=== PATIENT | male | born 1950 | race Caucasian/White ===

== ENCOUNTER 2018-02-07 11:25 | Emergency (ER) | payer MEDICARE ==
[2018-02-07 11:51] VITALS: BP 168/74
--- NOTE | 2018-02-07 11:57 | UC ---
General HPI - HPI Summary HPI Summary: 67 yo male presents with right ankle pain for the last 4 hours. He tells me that he has a hx of gout in this ankle/foot/toes, but has been on long-term maintenance therapy and has not needed his indomethacin for almost a year - thus the rx is . He did not injure his ankle/foot and believes this is a gout flare as he has been eating foods he "knows he shouldn't" recently. He is requesting a refill of his indocin. Denies numbness, tingling, injury, fever, or chills. - History of Current Complaint Chief Complaint: UCLowerExtremity Stated Complaint: SCRIPT REFILL Time Seen by Provider: 02/07/18 11:56 Hx Obtained From: Patient Onset/Duration: Sudden Onset Onset Severity: Moderate Current Severity: Moderate Pain Intensity: 7 - Allergy/Home Medications Allergies/Adverse Reactions: Allergies Allergy/AdvReac Type Severity Reaction Status Date / Time No Known Allergies Allergy Verified 01/04/14 16:23 Home Medications: Home Medications Indomethacin CAP* [Indocin CAP*] 02/07/18 [History] PMH/Surg Hx/FS Hx/Imm Hx - Additional Past Medical History Additional PMH: Gout Endocrine History: Hypothyroidism Respiratory History: Asthma - Surgical History Surgical History: Yes Surgery Procedure, Year, and Place: GALL BLADDER 2012, KNEE SURGERY - Family History Known Family History: Negative: Diabetes - Social History Occupation: Unemployed Lives: With Family Alcohol Use: Occasionally Substance Use Type: None Smoking Status (MU): Light Every Day Tobacco Smoker Type: Smokeless Tobacco - Immunization History Most Recent Tetanus Shot: UNSURE Review of Systems Constitutional: Negative Skin: Negative Respiratory: Negative Cardiovascular: Negative Neurovascular: Negative Musculoskeletal: Other: - Right ankle pain Neurological: Negative Psychological: Negative All Other Systems Reviewed And Are Negative: Yes Physical Exam - Summary Physical Exam Summary: GENERAL: NAD. WDWN. No pain distress. SKIN: No rashes, sores, lesions, or open wounds. NECK: Supple. Nontender. No lymphadenopathy. CHEST: No accessory muscle use. Breathing comfortably and in no distress. CV: Pulses intact PT and DP. Brisk cap refill. MSK: RIGHT ankle: FROM. Moderate TTP medial malleolus. No erythema. Strength 5/ 5. No edema or obvious bony deformities. Negative talar tilt. No increased laxity. NEURO: Alert. Sensations intact and symmetric B/L LEs PSYCH: Age appropriate behavior. Triage Information Reviewed: Yes Vital Signs: Initial Vital Signs Temp 97.6 F 02/07/18 11:42 Pulse 60 02/07/18 11:42 Resp 16 02/07/18 11:42 BP 168/74 02/07/18 11:42 Pulse Ox 97 02/07/18 11:42 Vital Signs Reviewed: Yes Course/Dx - Course Course Of Treatment: Refill of indomethacin - Differential Dx - Multi-Symptom Provider Diagnoses: Gout right ankle Discharge - Sign-Out/Discharge Documenting (check all that apply): Patient Departure - Discharge Plan Condition: Stable Disposition: HOME Prescriptions: Indomethacin CAP* [Indocin CAP*] 50 mg PO QID PRN #60 cap PRN Reason: pain Patient Education Materials: Low Purine Diet (ED), Gout (ED) Referrals: Tima Winn MD [Primary Care Provider] - Additional Instructions: If you develop a fever, shortness of breath, chest pain, new or worsening symptoms - please call your PCP or go to the ED. Your blood pressure was high at todays visit. Please see your primary provider within 4 weeks for recheck and re-evaluation. - Billing Disposition and Condition Condition: STABLE Disposition: Home
== END 2018-02-07 12:10 | disposition home or self-care (01) ==
LOC: UCEAST 11:25
DX: M10.071 Idiopathic gout, right ankle and foot (principal); Z76.0 Encounter for issue of repeat prescription; F17.290 Nicotine dependence, other tobacco product, uncomplicated
CPT/HCPCS: 99212; G0463

== ENCOUNTER 2019-07-27 09:30 | Observation (INO) | payer MEDICARE ==
[~2019-07-27 09:30] MED LIST: Heparin VIAL(*) 5000 UNITS/ML VIAL (FIVE THOUSAND) SUBCUT SCH
--- OUTSIDE RECORDS SUMMARY | 2019-07-27 12:10 | XMS REPORT | Summary of Care ---
:1950 Author Organization [facility] Address [address] [address] Care Team Providers Name Role Phone Tima Winn Primary Care Provider Reason for Referral Medication Prior Authorization (Routine) Status Reason Specialty Diagnoses / Procedures Referred By Referred To Contact Contact Closed Diagnoses Spondylosis of lumbar region without myelopathy or radiculopathy Primary osteoarthritis of right hip Primary osteoarthritis of right knee Ector Jacobs PA [address] [place] [address] Reason for Visit Reason Comments Low Back Pain Encounter Details Date Type Department Care Team Description 06/24/2019 Office Visit [place] Ector Jacobs Spondylosis of lumbar region without myelopathy or radiculopathy (Primary Dx); JORDANA Huff Primary osteoarthritis of right hip; [address] [place] [address] [phone] Allergies Active Allergy Reactions Severity Noted Date Comments Cat Respiratory Reaction 03/16/2009 Perfume GI Reaction 03/16/2009 documented as of this encounter (statuses as of 06/24/2019) Medications Medication Sig Dispensed Refills Start Date End Date Status Spacer/Aero-Holding 1 Kit by Does not 1 Kit 0 06/12/2010 Active Chambers Does not apply route apply Kit DIRECTED. fexofenadine (JESUS) Take 180 mg by 0 Active 180 MG Oral Tab mouth DAILY. albuterol HFA Take 2 Puffs by 1 Inhaler 5 09/11/2017 Active (VENTOLIN) 108 (90 inhalation EVERY Base) MCG/ACT SIX HOURS Inhalation Aero Soln NEEDED (short of breath). levothyroxine Take 1 Tab by 90 Tab 5 01/11/2019 01/11/2020 Active (SYNTHROID) 200 MCG mouth BEFORE Oral Tab BREAKFAST. indomethacin (INDOCIN) Take 1 Cap by 60 Cap 5 02/10/2019 Active 50 MG Oral mouth FOUR TIMES CapIndications: Acute DAILY NEEDED gouty arthropathy (gout). with food allopurinol (ZYLOPRIM) TAKE 1 TABLET BY 90 Tab 3 03/08/2019 Active 300 MG Oral MOUTH ONCE DAILY TabIndications: Idiopathic chronic gout without tophus, unspecified site ibuprofen (MOTRIN) 600 Take 1 Tab by 60 Tab 0 06/24/2019 Active MG Oral mouth EVERY EIGHT TabIndications: HOURS NEEDED Spondylosis of lumbar (Take every 8 region without hours as needed myelopathy or for back and knee radiculopathy, Primary pain.). osteoarthritis of right hip, Primary osteoarthritis of right knee cyclobenzaprine Take 1 Tab by 42 Tab 0 06/24/2019 Active (FLEXERIL) 10 MG Oral mouth THREE TIMES TabIndications: DAILY NEEDED Spondylosis of lumbar (Take up to three region without times per day as myelopathy or needed for back radiculopathy, Primary pain.). 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 05/2011 Started cpap 07/10. Auto titrate with mask. ENVIRONMENTAL ALLERGIES 06/12/2010 Ulcerative colitis, unspecified 06/12/2010 Colon polyp 02/05/2010 Overview: S/p colonoscopy and polypectomy [facility] 1999 Polypectomy 2007 Normal colonoscopy 2009 Other specified hypothyroidism 02/13/2009 Extreme obesity 02/13/2009 Overview: BMI 45 02/04. Weight loss 2011-05 371 pounds down to 290 pounds fall 2011 This patient's BMI has been calculated and is above average, and BMI management plan is completed. General patient education discussion including: obesity-related excess mortality, weight loss link to reduction of risk factors for cardiac and other diseases, importance of long- term maintenance treatment in weight loss documented as of this encounter (statuses as of 06/24/2019) Resolved Problems Problem Noted Date Resolved Date Acute pain of right knee 10/07/2018 11/09/2018 Low back pain 12/10/2015 11/09/2018 Ankle pain 04/18/2014 11/09/2018 Obesity, unspecified 12/09/2011 05/04/2012 Ulcerative colitis, unspecified 06/12/2010 10/28/2013 Indigestion 06/12/2010 12/25/2015 Gout, unspecified 03/20/2009 09/02/2017 Overview: Intermittent big toe swelling Last attack summer 2009 ACL tear 02/13/2009 11/09/2018 Overview: Left knee injury 2006-declined surgery. W/c injury: employer [employer] documented as of this encounter (statuses as of 06/24/2019) Immunizations Name Administration Dates Next Due Influenza (IM) Preservative Free 04/22/2018 PNEUMOCOCCAL POLYSACCHARIDE VACCINE 11/09/2018 Pneumococcal Conjugate(13 Valent) 09/02/2017 TDAP Vaccine 12/27/2002 documented as of this encounter Social History Tobacco Use Types Packs/Day Years Used Date Former Smoker Cigars 0.5 Quit: 11/27/2008 Smokeless Tobacco: Never Used Comments: 1 cigar a week-does not inhale Alcohol Use Drinks/Week oz/Week Comments Yes Sex Assigned at Date Recorded Not on file Job Start Date Occupation Industry Not on file Not on file Not on file Travel History Travel Start Travel End No recent travel history available. documented as of this encounter Last Filed Vital Signs Vital Sign Reading Time Taken Comments Blood Pressure 142/92 06/24/2019 12:29 PM EST Pulse 72 06/24/2019 12:29 PM EST Temperature 36.2 06/24/2019 12:29 PM EST C (97.2 F) Respiratory Rate 16 06/24/2019 12:29 PM EST Oxygen Saturation 96% 06/24/2019 12:29 PM EST Inhaled Oxygen Concentration - - Weight 145.6 kg (321 lb) 06/24/2019 12:29 PM EST Height 180.3 cm (5' 11") 06/24/2019 12:29 PM EST Body Mass Index 44.77 06/24/2019 12:29 PM EST documented in this encounter Progress Notes Ector Jacobs PA - 06/24/2019 2:00 PM EST PATIENT: Cem Garcia : 1950 DATE OF SERVICE: 06/24/2019 CHIEF COMPLAINT: Chief Complaint Patient presents with Low Back Pain Subjective HISTORY OF PRESENT ILLNESS: Cem Garcia is a 69-y.o. male. Cem presents today to see if he can receive any medication to alleviate his lower back pain, right hip pain, right knee pain and right leg sciatica. He is currently under the care of [facility], where he receives routine corticosteroid injections. However, over the last 4 days he has experienced intolerable pain that he would like addressed. He states the pain is about an 8/10 recently and is keeping him from walking short distances and he is having great difficulty moving positions between sitting and standing. To alleviate the pain he isusing a back brace and is taking Tylenol 2 grams daily without much relief. He used to be a regular ibuprofen user but was advised to stop taking it several years ago when he was diagnosed with ulcerative colitis. He has not tried ibuprofen or other medications for the pain. He currently denies saddle anesthesia, sciatica in the left leg, changes in bowel or urinary habits,or incontinence. Past Medical History: Diagnosis Date ACL tear ENVIRONMENTAL ALLERGIES 06/12/2010 Indigestion 06/12/2010 Obesity Ulcerative colitis, unspecified 06/12/2010 Family History Problem Relation Age of Onset Cancer Mother breast Cancer Father lung (smoker) Current Outpatient Medications Medication Sig albuterol HFA (VENTOLIN) 108 (90 Base) MCG/ACT Inhalation Aero Soln Take 2 Puffs by inhalation EVERY SIX HOURS NEEDED (short of breath). allopurinol (ZYLOPRIM) 300 MG Oral Tab TAKE 1 TABLET BY MOUTH ONCE DAILY cyclobenzaprine (FLEXERIL) 10 MG Oral Tab Take 1 Tab by mouth THREE TIMES DAILY NEEDED (Take up to three times per day as needed for back pain.). fexofenadine (JESUS) 180 MG Oral Tab Take 180 mg by mouth DAILY. ibuprofen (MOTRIN) 600 MG Oral Tab Take 1 Tab by mouth EVERY EIGHT HOURS NEEDED (Take every 8 hours as needed for back and knee pain.). indomethacin (INDOCIN) 50 MG Oral Cap Take 1 Cap by mouth FOUR TIMES DAILY NEEDED (gout). with food levothyroxine (SYNTHROID) 200 MCG Oral Tab Take 1 Tab by mouth BEFORE BREAKFAST. Spacer/Aero-Holding Chambers Does not apply Kit 1 Kit by Does not apply route DIRECTED. No current facility-administered medications for this visit. Allergies Allergen Reactions Cat Respiratory Reaction Perfume GI Reaction Social History Socioeconomic History Marital status: Single Spouse name: Not on file Number of children: Not on file Years of education: Not on file Highest education level: Not on file Occupational History Not on file Social Needs Financial resource strain: Not on file Food insecurity Worry: Not on file Inability: Not on file Transportation needs Medical: Not on file Non-medical: Not on file Tobacco Use Smoking status: Former Smoker Years: 0.50 Types: Cigars Last attempt to quit: 11/27/2008 Years since quittin.5 Smokeless tobacco: Never Used Tobacco comment: 1 cigar a week-does not inhale Substance and Sexual Activity Alcohol use: Yes Drug use: No Sexual activity: Not Currently Lifestyle Physical activity Days per week: Not on file Minutes per session: Not on file Stress: Not on file Relationships Social connections Talks on phone: Not on file Gets together: Not on file Attends episcopal service: Not on file Active member of club or organization: Not on file Attends meetings of clubs or organizations: Not on file Relationship status: Not on file Intimate partner violence Fear of current or ex partner: Not on file Emotionally abused: Not on file Physically abused: Not on file Forced sexual activity: Not on file Other Topics Concern Back Care Not Asked Bike Helmet Not Asked Blood Transfusions Not Asked Caffeine Concern Not Asked Exercise No Comment: walks several miles daily Hobby Hazards Not Asked International Travel Not Asked Service Not Asked Occupational Exposure Not Asked Seat Belt Yes Self-Exams Not Asked Sleep Concern Yes Comment: poor quality sleep-3-4 hours per night Special Diet Yes Comment: portion control diet Stress Concern Yes Comment: job is stressful-works 70 hours per week. 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 Eyes: Negative for blurred vision and double vision. Respiratory: Negative for cough and shortness of breath. Cardiovascular: Negative for chest pain, palpitations and leg swelling. Gastrointestinal: Negative for blood in stool, diarrhea, heartburn, nausea and vomiting. Genitourinary: Negative for frequency. Musculoskeletal: Positive for back pain and joint pain. Negative for myalgias and neck pain. Skin: Negative for itching and rash. Neurological: Negative for dizziness, tingling, tremors, sensory change, speech change, seizures, weakness and headaches. Objective PHYSICAL EXAM: VITALS: BP (!) 142/92 (BP Location: Left arm, Patient Position: Sitting) | Pulse 72 | Temp 97.2 F (36.2 C) | Resp 16 | Ht 5' 11" (1.803 m) | Wt 321 lb (145.6 kg) | SpO2 96% | BMI 44.77 kg/m Body mass index is 44.77 kg/m. Physical Exam Vitals signs and nursing note reviewed. Constitutional: General: He is not in acute distress. HENT: Head: Normocephalic and atraumatic. Eyes: Pupils: Pupils are equal, round, and reactive to light. Musculoskeletal: General: No swelling, tenderness or deformity. Right lower leg: No edema. Left lower leg: No edema. Comments: Patient complains of pain in all ranges of motion of the hip and knee. Patient experiences obvious pain when sitting and standing. He is not able to bend forward or backward. Skin: General: Skin is warm and dry. Neurological: General: No focal deficit present. Mental Status: He is alert and oriented to person, place, and time. Sensory: No sensory deficit. Coordination: Coordination normal. ASSESSMENT / IMPRESSION: ICD-9-CM ICD-10-CM 1. Spondylosis of lumbar region without myelopathy or radiculopathy 721.3 M47.816 ibuprofen (MOTRIN)600 MG Oral Tab cyclobenzaprine (FLEXERIL) 10 MG Oral Tab 2. Primary osteoarthritis of right hip 715.15 M16.11 ibuprofen (MOTRIN) 600 MG Oral Tab cyclobenzaprine (FLEXERIL) 10 MG Oral Tab 3. Primary osteoarthritis of right knee 715.16 M17.11 ibuprofen (MOTRIN) 600 MG Oral Tab cyclobenzaprine (FLEXERIL) 10 MG Oral Tab Based on the patient's nature, I advised that he may take ibuprofen 600mg every 8 hours as needed for the pain, but he should only take it when absolutely necessary based on his history of ulcerative colitis. Because he only experiences pain when in motion, he states it that he will take it only when he goes to work. Please rotate the ibuprofen with Tylenol. I also prescribed him cyclobenzaprine to reduce musculoskeletal spasming that he has been experiencing. He may take this in combination with his NSAIDs and tylenol. He has been advised of the side effects such as sedation and dizziness , and to avoid operating equipment when on flexeril. Follow up as needed, and continue to see orthopedics. Author: JORDANA Allison 06/24/2019 13:03 documented in this encounter Plan of Treatment Date Type Specialty Care Team Description 07/08/2019 Office Visit Orthopedics Arsh Monsalve MD [address] [address] Health Maintenance Due Date Last Done Comments MEDICARE ANNUAL WELLNESS 1950 VISIT ZOSTER IMMUNIZATION SERIES 2002 (1 of 2) DTaP/Tdap/Td Vaccines (2 - 12/27/2012 12/27/2002 Tdap) AAA SCREENING/SURVEILLANCE 2017 DIABETES SCREENING 12/19/2019 12/18/2018, 11/09/2018, 09/02/2017, Additional history exists DEPRESSION SCREENING 01/12/2020 01/11/2019 FALL RISK ASSESSMENT 01/12/2020 01/11/2019, 01/11/2019 LIPID DISORDER SCREENING 11/10/2023 11/09/2018, 09/02/2017, 05/09/2010, Additional history exists Colonoscopy 04/26/2024 04/26/2019, 04/26/2019, 01/18/2015 (Postponed), Additional history exists PNEUMOCOCCAL 65+YRS Completed 11/09/2018, 09/02/2017 HEPATITIS A IMMUNIZATION Aged Out No longer eligible SERIES based on patient's age to complete this topic HPV IMMUNIZATION SERIES Aged Out No longer eligible based on patient's age to complete this topic MENINGOCOCCAL VACCINE IMM Aged Out No longer eligible based on patient's age to complete this topic documented as of this encounter Results Not on filedocumented in this encounter Visit Diagnoses Diagnosis Spondylosis of lumbar region without myelopathy or radiculopathy Lumbosacral spondylosis without myelopathy Primary osteoarthritis of right hip Primary localized osteoarthrosis, pelvic region and thigh Primary osteoarthritis of right knee Primary localized osteoarthrosis, lower leg documented in this encounter Insurance Payer Benefit Plan / Subscriber ID Effective Dates Phone Address Type Group AETNA MEDICARE AETNA MEDICARE xxxxxxxx 2017-Present [employer] ADVANTAGE ADVANTAGE (Work) documented as of this encounter
--- OUTSIDE RECORDS SUMMARY | 2019-07-27 12:10 | XMS REPORT | Summary of Care ---
:1950 Author Organization [facility] Address [address] [facility] [place] [address] Care Team Providers Name Role Phone Tima Winn Primary Care Provider Reason for Visit Reason Comments Follow Up right hip Encounter Details Date Type Department Care Team Description 07/08/2019 Office Visit [facility] - Arsh Monsalve, Primary osteoarthritis Jonathan ROGERS of right hip (Primary [address] [place] [address]) [address] [place] [address] [place] [address] [phone] Allergies Active Allergy Reactions Severity Noted Date Comments Cat Respiratory Reaction 03/16/2009 Perfume GI Reaction 03/16/2009 documented as of this encounter (statuses as of 07/22/2019) Medications Medication Sig Dispensed Refills Start Date [...] as of this encounter (statuses as of 07/22/2019) Active Problems Problem Noted Date Pre-diabetes 02/10/2019 Spondylosis of lumbar region without myelopathy or radiculopathy 11/09/2018 Primary osteoarthritis of right hip 11/09/2018 Primary osteoarthritis of right knee 11/09/2018 Idiopathic chronic gout without tophus 09/02/2017 Mild intermittent asthma 12/25/2015 Ankle pain, right 04/11/2014 YASMEEN (obstructive sleep apnea) 07/01/2011 Overview: Severe by sleep study [facility] 05/2011 Started cpap 07/10. Auto titrate with mask. ENVIRONMENTAL ALLERGIES 06/12/2010 Ulcerative colitis, unspecified 06/12/2010 Colon polyp 02/05/2010 Overview: S/p colonoscopy and polypectomy [facility] 1999 Polypectomy 2007 Normal colonoscopy 2009 Other specified hypothyroidism 02/13/2009 Extreme obesity 02/13/2009 Overview: BMI 45 02/04. Weight loss 2010- 371 pounds down to 290 pounds fall 2011 This patient's BMI has been calculated and is above average, and BMI management plan is completed. General patient education discussion including: obesity-related excess mortality, weight loss link to reduction of risk factors for cardiac and other diseases, importance of long- term maintenance treatment in weight loss documented as of this encounter (statuses as of 07/22/2019) Resolved Problems Problem Noted Date Resolved Date [...] as of this encounter (statuses as of 07/22/2019) Immunizations Name Administration Dates Next Due Influenza [...] Sign Reading Time Taken Comments Blood Pressure - - Pulse - - Temperature - - Respiratory Rate 16 07/08/2019 10:32 AM EST Oxygen Saturation - - Inhaled Oxygen Concentration - - Weight 145.6 kg (321 lb) 07/08/2019 10:32 AM EST Height 180.3 cm (5' 11") 07/08/2019 10:32 AM EST Body Mass Index 44.77 07/08/2019 10:32 AM EST documented in this encounter Progress Notes Arsh Monsalve MD - 07/08/2019 10:30 AM EST [address] [place] [address] PATIENT: Cem Garcia : 1950 DATE OF PROCEDURE: 07/22/2019 SURGEON: kennedy PRE-OP Diagnosis: right Hip and Low Back Pain or Knee pain. POST-OP Diagnosis: right Hip and Low Back Pain or Knee pain. Procedure: Diagnostic Therapeutic Intra-articular right Hip Iinjection. Anesthesia Type: Local EBL: Minimal Complications: None INDICATION FOR PROCEDURE: Cem Garcia is a 69-y.o. male. He has groin pain , low, back pain, and lateral thigh pain. We are doing an intra articular hip injection to sort through the symptoms and determine if the hip is a major pain generator. DESCRIPTION OF PROCEDURE: Following explaining the risks and benefits to the patient, risks include, but are not limited to, infection, blood loss, blood clots, myocardial infarction, damage to neurovascular structures, local reaction to the medication, and failure to relieve symptoms. The patient agrees to proceed. The appropriate site and side were identified and marked. The patient was brought to the Procedure room. The hip was anesthetized with 1% plain lidocaine. The hip was localized under fluoroscopy. An 18-gauge spinal needle was introduced into the hip. Contrast was shot as an arthrogram to verify intraarticular placement, and the hip was injected with 9 cc of 1% plain lidocaine and 80 mg of Depo-Medrol. The patient tolerated the procedure well. Arthrogram:4 sec of flour time used. Hip capsule outlined. Noted underlying arthrosis. POSTOPERATIVE PLAN: Weightbearing as tolerated, mobilize. Tylenol for pain. Keep careful track of symptoms relief. Follow up in 6 weeks Author: Arsh Monaslve MD 07/22/2019 documented in this encounter Plan of Treatment Health Maintenance Due Date Last Done Comments [...] topic documented as of this encounter Results XR DRAIN OR INJ MAJOR JOINT OR BURSA(NO RAD) (07/08/2019 10:51 AM EST) Specimen Narrative Performed At Please see performing physicians notes for results of this exam. [facility] Performing Organization Address City/State[facility] Phone Number [facility] [address] [place] [address] documented in this encounter Visit Diagnoses Diagnosis Primary osteoarthritis of right hip Primary localized osteoarthrosis, pelvic region and thigh documented in this encounter Insurance Payer Benefit Plan / Subscriber ID Effective Dates Phone Address Type Group AETNA MEDICARE AETNA MEDICARE xxxxxxxx 2017-Present [employer] ADVANTAGE ADVANTAGE (Work) documented as of this encounter
--- OUTSIDE RECORDS SUMMARY | 2019-07-27 12:10 | XMS REPORT | Continuity of Care Document ---
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 Medicine Problems Description No Information Available Social History Type Date Description Comments Sex Unknown ETOH Use Occasionally consumes alcohol Tobacco Use Start: Unknown Chew tobacco Exercise Type/Frequency Exercises regularly Allergies, Adverse Reactions, Alerts Description No Known Drug Allergies Medications Active Medications SIG Qnty Indications Ordering Date Provider Albuterol Unknown Nathalie Allergy 1 by mouth every Unknown 180mg day Tablets Allopurinol 1 by mouth every 90tabs Unknown 300mg day Tablets Diphenoxylate-Atropi 1 by mouth every Unknown ne day 2.5-0.025mg Tablets Fluocinonide-E 1 application 30gmtube Unknown 0.05% daily as needed Cream Indomethacin 1 by mouth twice a 60caps Unknown 50mg day Capsules Levothyroxine 1 by mouth every 30tabs Unknown 150mcg day Tablets Loperamide HCL q6hr as needed 100caps Unknown 2mg Capsules Mesalamine Unknown Powder Ondansetron HCL one by mouth every 20tabs Unknown 4mg 8 hours as needed Tablets for nausea Medications Administered in Office Medication SIG Qnty Indications Ordering Provider Date Depomedrol 80MG Cam Reed M.D. 04/25/2014 Injection Immunizations Description No Information Available Vital Signs Date Vital Result Comment 05/09/2014 1:22pm Height 71 inches 5'11" Weight 325.00 lb Pain Level 4 BMI (Body Mass Index) 45.3 kg/m2 04/25/2014 1:31pm Height 71 inches 5'11" Weight 325.00 lb Heart Rate 84 /min BP Systolic 155 mmHg BP Diastolic 102 mmHg BMI (Body Mass Index) 45.3 kg/m2 Results Description No Information Available Procedures Description No Information Available Medical Devices Description No Information Available Encounters Description No Information Available Assessments Description No Information Available Plan of Treatment No Information Available Functional Status Description No Information Available Mental Status Description No Information Available Referrals Description No Information Available
--- OUTSIDE RECORDS SUMMARY | 2019-07-27 12:10 | XMS REPORT | Summary of Care ---
:1950 Author Organization [facility] Address [address] [facility] [place] [address] Care Team Providers Name Role Phone Tima Winn Primary Care Provider Reason for Visit Reason Comments Follow Up right hip Encounter Details Date Type Department Care Team Description 06/17/2019 Office Visit [facility] - Arsh Monsalve, Primary osteoarthritis Jonathan ROGERS of right hip (Primary [address] [place] [address] [place] [address] [phone] Allergies Active Allergy Reactions Severity Noted Date Comments Cat Respiratory Reaction 03/16/2009 Perfume GI Reaction 03/16/2009 documented as of this encounter (statuses as of 06/17/2019) Medications Medication Sig Dispensed Refills Start Date End Date Status Spacer/Aero-Holding 1 Kit by Does not 1 Kit 0 06/12/2010 Active Chambers Does not apply route apply Kit DIRECTED. fexofenadine Take 180 mg by 0 Active (JESUS) 180 MG Oral mouth DAILY. Tab albuterol HFA Take 2 Puffs by 1 Inhaler 5 09/11/2017 Active (VENTOLIN) 108 (90 inhalation EVERY Base) MCG/ACT SIX HOURS Inhalation Aero Soln NEEDED (short of breath). levothyroxine Take 1 Tab by 90 Tab 5 01/11/2019 01/11/2020 Active (SYNTHROID) 200 MCG mouth BEFORE Oral Tab BREAKFAST. indomethacin Take 1 Cap by 60 Cap 5 02/10/2019 Active (INDOCIN) 50 MG Oral mouth FOUR TIMES CapIndications: Acute DAILY NEEDED gouty arthropathy (gout). with food allopurinol TAKE 1 TABLET BY 90 Tab 3 03/08/2019 Active (ZYLOPRIM) 300 MG MOUTH ONCE DAILY Oral TabIndications: Idiopathic chronic gout without tophus, unspecified site documented as of this encounter (statuses as of 06/17/2019) Active Problems Problem Noted Date Pre-diabetes 02/10/2019 Spondylosis of lumbar region without myelopathy or radiculopathy 11/09/2018 Primary osteoarthritis of right hip 11/09/2018 Primary osteoarthritis of right knee 11/09/2018 Idiopathic chronic gout without tophus 09/02/2017 Mild intermittent asthma 12/25/2015 Ankle pain, right 04/11/2014 YASMEEN (obstructive sleep apnea) 07/01/2011 Overview: Severe by sleep study [facility] 05/2011 Started cpap 07/10. Auto titrate with mask. ENVIRONMENTAL ALLERGIES 06/12/2010 Ulcerative colitis, unspecified 06/12/2010 Colon polyp 02/05/2010 Overview: S/p colonoscopy and polypectomy [facility] 1999 Polypectomy 2007 Normal colonoscopy [...] as of this encounter (statuses as of 06/17/2019) Resolved Problems Problem Noted Date Resolved Date Acute pain of right knee 10/07/2018 11/09/2018 Low back pain 12/10/2015 11/09/2018 Ankle pain 04/18/2014 11/09/2018 Obesity, unspecified 12/09/2011 05/04/2012 Ulcerative colitis, unspecified 06/12/2010 10/28/2013 Indigestion 06/12/2010 12/25/2015 Gout, unspecified 03/20/2009 09/02/2017 Overview: Intermittent big toe swelling Last attack summer 2009 ACL tear 02/13/2009 11/09/2018 Overview: Left knee injury 2006-declined surgery. W/c injury: employer [facility] documented as of this encounter (statuses as of 06/17/2019) Immunizations Name Administration Dates Next Due Influenza [...] - - Temperature - - Respiratory Rate 20 06/17/2019 11:33 AM EST Oxygen Saturation - - Inhaled Oxygen Concentration - - Weight 142.4 kg (314 lb) 06/17/2019 11:33 AM EST Height 180.3 cm (5' 11") 06/17/2019 11:33 AM EST Body Mass Index 43.79 06/17/2019 11:33 AM EST documented in this encounter Progress Notes Arsh Monsalve MD - 06/17/2019 12:00 PM EST PATIENT: Cem Garcia : 1950 DATE OF SERVICE: 06/17/2019 SUBJECTIVE: Cem Garcia is a 69-y.o. male. Here for follow up of right hip, injection lasted 6 weeks. He isnow having a lot of pain. He is not sleeping. He is not able to do the things he likes to do . OBJECTIVE: Resp 20 | Ht 5' 11" (1.803 m) | Wt 314 lb (142.4 kg) | BMI 43.79 kg/m Pain with range of motion. 0-90, ir-15, er-30, abd-35, add-15 ASSESSMENT: ICD-9-CM ICD-10-CM 1. Primary osteoarthritis of right hip 715.15 M16.11 PLAN: He is slated to have bariatric surgery jul 27 We will discuss surgery after this Author: Arsh Monsalve MD 06/17/2019 11:44 Portions of this note were made with voice recognition software documented in this encounter Plan of Treatment [...] filedocumented in this encounter Visit Diagnoses Diagnosis Primary osteoarthritis of right hip Primary localized osteoarthrosis, pelvic region and thigh documented in this encounter Insurance Payer Benefit Plan / Subscriber ID Effective Dates Phone Address Type Group AETNA MEDICARE AETNA MEDICARE xxxxxxxx 2017-Present [employer] ADVANTAGE (Home) [phone] [place] [address] (Work) documented as of this encounter
--- OUTSIDE RECORDS SUMMARY | 2019-07-27 12:10 | XMS REPORT | Continuity of Care Document ---
:1950 External Reference #:[id number] Author Name Bryn Chatman DO [facility] (transmitted by agent of provider Corazon Monroe) Address [address] 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 Pt "smoked" cigar in the past. ETOH Use Occasionally consumes alcohol Tobacco Use Start: Unknown Chew tobacco Recreational Drug Use Denies Drug Use Tobacco Use Start: Unknown End: Patient is a former Unknown smoker Smoking Status Reviewed: 06/15/19 Patient is a former smoker Exercise Type/Frequency Exercises regularly Allergies, Adverse Reactions, Alerts Description No Known Drug Allergies Medications Active Medications SIG Qnty Indications Ordering Provider Date Albuterol As needed Unknown Allopurinol 1 by mouth 90tabs Unknown 300mg Tablets every day Diphenoxylate-Atropine 1 by mouth Unknown every day as 2.5-0.025mg Tablets needed Indomethacin 1 by mouth 4 60caps Unknown 50mg Capsules times a day prn Levothyroxine Sodium 1 by mouth 30tabs Unknown 200mcg every day Tablets Ondansetron HCL one by mouth 20tabs Unknown 4mg Tablets every 8 hours as needed for nausea Medications Administered in Office Medication SIG Qnty Indications Ordering Provider Date Depomedrol 80MG Cam Reed M.D. 04/25/2014 Injection Immunizations Description No Information Available Vital Signs Date Vital Result Comment 06/15/2019 12:34pm Height 71 inches 5'11" Weight 308.00 lb w/ shoes Heart Rate 52 /min R radial pulse BP Systolic 132 mmHg lue reg cuff BP Diastolic 74 mmHg lue reg cuff BP Systolic Sitting 138 mmHg lue reg cuff BP Diastolic Sitting 74 mmHg lue reg cuff BP Systolic Standing [address] cuff BP Diastolic Standing [address] cuff Respiratory Rate 16 /min BMI (Body Mass Index) 43.0 kg/m2 Ejection Fraction none 05/09/2014 1:22pm Height 71 inches 5'11" Weight 325.00 lb Pain Level 4 BMI (Body Mass Index) 45.3 kg/m2 Results Description No Information Available Procedures Date Code Description Status 06/15/2019 74720 EKG Tracing & Interpretation Completed Medical Devices Description No Information Available Encounters Description No Information Available Assessments Date Code Description Provider 06/15/2019 Z01.810 Encounter for preprocedural Bryn Chatman DO [facility] cardiovascular examination Plan of Treatment Future Appointment(s):07/06/2019 11:45 am - Bryn Chatman DO [facility] at [facility]06/15/2019 - Bryn Chatman DO FACCZ01.810 Encounter for preprocedural cardiovascular examinationNew Orders:Stress Test, Exercise Nuclear , Scheduled: 07/06/19Follow up:schedule stress test as 1 day study, no med holds f/u prn Functional Status Description No Information Available Mental Status Description No Information Available Referrals Description No Information Available
[2019-07-27] MEDS ORDERED: Heparin VIAL(*) 5000 UNITS/ML VIAL (FIVE THOUSAND) ONE (12:46)
[2019-07-27] MEDS ORDERED: ceFAZolin 2 GM PREMIX in ORs 2 GM/50 ML BAG ONE (12:46)
[2019-07-27] MEDS ORDERED: ceFAZolin 1 GM ADVAN(*) 1 GM ADDV.VIAL IVPB ONE (12:46)
[2019-07-27] MEDS ORDERED: Bupivacaine 0.25% EPI 200,000* 30 ML SDV ONE (13:00)
[2019-07-27] MEDS ORDERED: Rocuronium* 10 MG/ML VIAL ONE (13:22)
[2019-07-27] MEDS ORDERED: HYDROmorphone INJ1* 1 MG/ML SYRINGE ONE ×2 (13:22→16:02)
[2019-07-27] MEDS ORDERED: Propofol* 10 MG/ML 20 ML BTL ONE (13:22)
[2019-07-27] MEDS ORDERED: Naloxone* 0.4 MG/ML 1 ML VIAL IV PRN (13:39)
[2019-07-27] MEDS ORDERED: Ondansetron INJ* 2 MG/ML VIAL IV PRN ×2 (13:39→18:30)
[2019-07-27] MEDS ORDERED: Ondansetron INJ* 2 MG/ML VIAL ONE ×2 (15:09→16:06)
--- NOTE | 2019-07-27 15:13 | OP ---
Operative Report - Blank - Operative Report Date of Operation: 07/27/19 Note: Pre-OP Diagnoses: Clinically severe obesity Post-op Diagnosis: same Procedure: Laparoscopic sleeve gastrectomy Surgeon: Christian Friendt: Gianni Anethesia: BRYANT EBL: minimal IVF: minimal Specimen: portion of stomach Drains: none
[2019-07-27] MEDS ORDERED: Albuterol HFA INHALER* 8 gm MDI INH PRN (15:49)
[2019-07-27] MEDS: HYDROmorphone INJ1* 1 MG/ML SYRINGE IV PRN ×5 (16:03→16:31)
[2019-07-27] MEDS ORDERED: DiMENhydriNATE IV* 50 MG/ML VIAL ONE (16:43)
[2019-07-27] MEDS ORDERED: DiMENhydriNATE IV* 50 MG/ML VIAL IV PUSH ONE (17:22)
[2019-07-27] MEDS: Lactated Ringers 1000 ML Bag* 1,000 ML IV SCH (17:39)
[2019-07-27] MEDS ORDERED: Scopolamine 1.5 mg* PATCH ONE (18:27)
[2019-07-27] MEDS: Ketorolac INJ* 30 MG/ML 1 ML VIAL IV PUSH SCH ×2 (18:29→23:40)
[2019-07-27] MEDS ORDERED: Scopolamine 1.5 mg* PATCH TRANSDERM ONE (20:00)
[2019-07-27] MEDS: Famotidine IV* 10 MG/ML 2 ML (20 mg) IV SLOW PU SCH (21:25)
[2019-07-27] MEDS: Heparin VIAL(*) 5000 UNITS/ML VIAL (FIVE THOUSAND) SUBCUT SCH (21:31)
[2019-07-27] MEDS: HYDROmorphone INJ* 0.5 MG/0.5 ML SYRINGE IV SLOW PU PRN (21:43)
--- NOTE | 2019-07-28 00:25 | OP ---
CC: Dr. Tima Winn; [facility] * DATE OF OPERATION: 07/27/19 - ROOM #352 DATE OF : 54 SURGEON: Bryn Gonzales MD CONCRETE POLISHER: [place] ANESTHESIA: General anesthesia. PRE-OP DIAGNOSES: Clinically severe obesity, obstructive sleep apnea. POST-OP DIAGNOSES: Clinically severe obesity, obstructive sleep apnea. OPERATIVE PROCEDURE: Laparoscopic sleeve gastrectomy. ESTIMATED BLOOD LOSS: Minimal. FLUIDS: Minimal crystalloid fluid given. See anesthesiology report for more details. SPECIMEN: Portion of the stomach. DRAINS: None. DESCRIPTION OF PROCEDURE: The patient was identified in the preoperative area, he was marked, consent was signed. I discussed the case with him and his son again. They understood, and the patient was taken to the operating room, placed on the operating table in supine position. Preoperative antibiotics were given. Sequential devices were placed on bilateral lower extremities. General anesthesia was induced. The patient's abdomen was prepped and draped in standard surgical fashion and time-out was performed. Folds of the umbilicus were elevated anteriorly and a Veress needle was inserted into the abdominal cavity, which was then allowed to insufflate to a pressure of 15 mmHg. The patient tolerated the insufflation well. An upper midline 12 mm optical trocar was then inserted and laparoscope was inserted through this and there was no evidence of injury from the trocar and the Veress needle, which was then removed. Additional trocars were then placed in the following positions: Two 5-mm along the left side and 12-mm in the right upper quadrant. The table was positioned to steep reverse Trendelenburg. A Nataliya retractor was inserted through a subxiphoid incision and the liver which was small in size was retracted anteriorly to the right, this exposed a very large gastroesophageal fat pad, which was grasped and retracted towards the right lower quadrant. Blunt and sharp dissection was carried out. I did enter into the left crura, but no significant bleeding was encountered. Next, I turned my attention to the pylorus, approximately 6 cm was counted out proximal to the pylorus and a retrogastric window was made in the lesser sac and the vasculature to the greater curvature was taken right up to the angle of His. Posterior attachments were similarly taken until the stomach could be rotated along its axis. It was somewhat contracted and we did place an OG tube in to suction off any air. This collapsed the air, but still was somewhat contracted from muscular standpoint, but did lay flat, I felt we could perform a good sleeve gastrectomy on this. The gastroesophageal fat pad was retracted more medially and dissected more medially as well. Next, a sleeve stomach was constructed using at first the black 60 TWAN stapling device and placing it through a upsized 15 mm port at the right upper quadrant. Prior to firing the stapler, we placed a 40-Dominican bougie into the distal stomach. Additional 60 mm purple TWAN stapling device with reinforcement strips were utilized to complete the stomach sleeve, staying close to the bougie at the very last stapler; however, we did flare out, staying out of the dissected fat pad, so that it could drape back over the staple line. Review of the becca showed good firing without irregularities. Hemostasis was excellent. The staple line was straight without corkscrewing. Next, we placed the transected stomach in an endoscopic retrieval bag. The Nataliya retractor was removed and this fell on top of the sleeve stomach. We then placed the patient back in neutral. The right upper quadrant port site was opened a little more at the fascial layer and we removed the specimen in an endoscopic retrieval bag, passed it off. The defect at the right upper quadrant was reapproximated with a 0 Vicryl suture using a Weck closure device. The abdomen was allowed to collapse and trocars were removed under direct vision. All skin incisions were reapproximated with 4-0 Monocryl subcuticular sutures. Steri-Strips and sterile dressing were applied. [id number]/[facility] #: [id number] [facility] CAMPUSGissel
[2019-07-28] MEDS: Lactated Ringers 1000 ML Bag* 1,000 ML IV SCH (01:46)
[2019-07-28] MEDS: Ketorolac INJ* 30 MG/ML 1 ML VIAL IV PUSH SCH ×2 (05:53→12:15)
[2019-07-28] MEDS: Heparin VIAL(*) 5000 UNITS/ML VIAL (FIVE THOUSAND) SUBCUT SCH ×2 (05:54→14:36)
[2019-07-28 07:12] LABS: ABS Lymphocytes 1.2 10^3/ul (1.0-4.8); ABS Monocytes 0.9 10^3/ul (0-0.8); ABS Neutrophils 6.8 10^3/ul (1.5-7.7); Eosinophil % 0.2 %; Hematocrit 39 % (42-52); Hemoglobin 13.3 g/dL (14.0-18.0); Lymphocyte % 13.5 %; Mean Corpuscular HGB Conc 35 g/dL (31-36); Mean Corpuscular Hemoglobin 33 pg (27-31); Mean Corpuscular Volume 96 fL (80-94); Mean Platelet Volume 9.1 fL (7.4-10.4); Platelet Count 191 10^3/uL (150-450); Red Blood Count 4.05 10^6 /uL (4.18-5.48); Red Cell Distribution Width 14 % (10-15)
[2019-07-28 07:26] LABS: Calcium 8.6 mg/dL (8.6-10.3); EGFR African American 90.2 (>60); EGFR Non-African American 74.5 (>60); Potassium 4.1 mmol/L (3.5-5.0)
[2019-07-28] MEDS: HYDROmorphone INJ* 0.5 MG/0.5 ML SYRINGE IV SLOW PU PRN (08:05)
[2019-07-28] MEDS: Famotidine IV* 10 MG/ML 2 ML (20 mg) IV SLOW PU SCH (09:12)
[2019-07-28] MEDS ORDERED: D5W 1/2 NS KCl 20 Meq 1000 ML* 1,000 ML IV SCH (10:00)
--- NOTE | 2019-07-28 10:48 | PN ---
Progress Note - Progress Note Date of Service: 07/28/19 Note: S: Reports he is feeling well with minimal pain. Ambulating, passing flatus. No BM yet. Some nausea yesterday, but none today. No vomiting. Denies fever, chills , palpitations, light headedness. States he is hungry and his mouth feels dry. O: Vital Signs - 8 hr 07/28/19 07/28/19 07/28/19 03:26 08:05 09:20 Temperature 98 F 99.1 F Pulse Rate 69 74 Respiratory 16 16 18 Rate Blood Pressure 142/77 125/56 (mmHg) O2 Sat by Pulse 100 98 Oximetry 07/28/19 09:53 Temperature Pulse Rate Respiratory 18 Rate Blood Pressure (mmHg) O2 Sat by Pulse Oximetry Intake and Output Last 24 Hours 07/26/19 07/27/19 07/28/19 07/29/19 06:59 06:59 06:59 06:59 Intake Total 1790 983 Output Total 450 Balance 1340 983 Weight 300 lb Intake: IV Fluids 1790 983 LR 1790 983 Oral 0 Output: Urine 450 Other: # Voids 1 Upper GI series: No evidence for intraperitoneal leak of contrast. PEX: General: Alert, in NAD or discomfort Integumentary: No rashes, jaundice, petechia HEENT: Oropharynx clear. Nares patent. Heart: RRR, no MRG Lungs: CTAB, no WRR ABD: Soft, nondistended. BS present. Mild tenderness in epigastrium and surrounding the incisions, which are C/D/I with no erythema or warmth. Extremities: Calves nontender. No edema. Distal pulses intact bilaterally. Assessment and plan: 69 yo M S/P laparoscopic sleeve gastrectomy POD# 1. Recovering appropriately, UGI with no evidence of leak, will start on bariatric clear liquids.
[2019-07-28 14:24] VITALS: BP 139/52
[2019-07-28] MEDS ORDERED: NS 0.9% 500 ML* 500 ML IV ONE (14:48)
--- NOTE | 2019-07-28 15:17 | DS ---
Admitted: 07/27/2019 Discharged: 07/28/2019 Admission diagnosis: Morbid obesity Discharge diagnosis: Morbid obesity, S/P laparoscopic sleeve gastrectomy Discharge condition: Stable Procedure performed: Laparoscopic sleeve gastrectomy Labs: Unremarkable PEX: General: Alert, in NAD or discomfort Integumentary: No rashes, jaundice HEENT: PERRLA, oropharynx clear Heart: RRR, no MRG Lungs: CTAB, no WRR Abd: BS present. Soft, nondistended. Mild tenderness surrounding incisions, which are C/D/I with no erythema or warmth. Extremities: Calves nontender. No edema. Distal pulses intact bilaterally. Hospital course: Admitted for the above named surgery. Tolerated it well and was transferred to [facility] for post op care. On POD#1 he was started on bariatric clear liquid diet and tolerated this well with no nausea; near time of discharge , he was drinking adequate amounts of liquid. He was experiencing minimal pain and no symptoms otherwise. Discharge instructions were given to the pt regarding diet, medications, activity, and post operative follow up. All questions were answered. Discharged home in stable condition on 07/28/2019.
[2019-07-30] MEDS ORDERED: Scopolamine PATCH Remove* 1 NOTE MISC PATCH OFF ONE (20:00)
== END 2019-07-28 16:40 | disposition home or self-care (01) | DRG 621 ==
LOC: UNDOADMIN 12:03 → INTOOBSV 12:03 → AA 12:03 → SSU 15:31 → UNDODISIN 07-28 16:40
PROVIDERS: ADMIT Surgery; ATTEND Surgery
DX: E66.01 Morbid (severe) obesity due to excess calories (principal); Z68.41 Body mass index [BMI] 40.0-44.9, adult; M19.90 Unspecified osteoarthritis, unspecified site; J45.909 Unspecified asthma, uncomplicated; G47.33 Obstructive sleep apnea (adult) (pediatric); M10.9 Gout, unspecified; E03.9 Hypothyroidism, unspecified; E55.9 Vitamin D deficiency, unspecified; E78.2 Mixed hyperlipidemia; R11.0 Nausea; R06.9 Unspecified abnormalities of breathing; Z87.891 Personal history of nicotine dependence; Z79.899 Other long term (current) drug therapy; Z79.890 Hormone replacement therapy; Z91.048 Other nonmedicinal substance allergy status
CPT/HCPCS: 36415; 43775; 74246; 80048; 85025; 88307; 88342; 96372; 96374; 96375; A9270-GY; G0378; J0690; J1170; J1240; J1644; J1885; J2405; J2704